=== PATIENT | female | born 1960 | race Caucasian/White ===

== ENCOUNTER 2024-11-18 16:10 | Emergency (ER) | payer MEDICARE, MEDICAID, SELFPAY ==
[2024-11-18 16:13] VITALS: BMI 36.3
[2024-11-18 16:57] VITALS: BP 144/82; PULSE 91; RESP 18; TEMP 36.8; O2SAT 97
--- NOTE | 2024-11-18 17:21 | PD.EDEXREM ---
ED Extremity Problem RME/HPI General Chief complaint: Extremity Problem,Nontraumatic Stated complaint: Right leg pain 04/20, swelling x 3 days Time Seen by Provider: 11/18/24 16:34 Arrival date/time: 11/18/24 16:10 64-year-old female with a history of lower back pain chronic and sciatica reports with complaints for pain right lower extremity. Patient states the pain shoots from her buttock down the thigh and down to the lower leg into her foot. Patient also reports some numbness and tingling in the foot she denies any injuries or trauma and states that she has been taking [place] which she is prescribed for pain with no relief of symptoms. Patient also denies any changes in bowel or bladder habits Limitations: no limitations Related Data Previous Rx's ?Medication ?Instructions ?Recorded meloxicam 7.5 mg tablet 7.5 mg PO QDAY #30 tabs 11/18/24 Allergies Allergy/AdvReac Type Severity Reaction Status Date / Time calcium Allergy Verified 11/18/24 16:13 iodine Allergy Verified 11/18/24 16:13 Penicillins Allergy Verified 11/18/24 16:13 povidone-iodine (From Allergy Verified 11/18/24 16:13 Betadine) Sulfa (Sulfonamide Allergy Verified 11/18/24 16:13 Antibiotics) Past Medical History Social History SMOKING STATUS: Current some day smoker ED Exam General Limitations: Present no limitations General appearance: Present alert and in no apparent distress Expanded Lower Extremity Exam Hip/Pelvis exam: Present normal inspection and full ROM Upper leg exam: Present normal inspection and full ROM; Absent tenderness, swelling or erythema Knee exam: Present normal inspection and full ROM; Absent tenderness, swelling or erythema Lower leg exam: Present normal inspection and full ROM; Absent tenderness, swelling or erythema Ankle exam: Present normal inspection and full ROM; Absent tenderness, swelling or erythema Foot/toe exam: Present normal inspection and full ROM; Absent tenderness or swelling Neurovascular/Tendon exam: Present normal capillary refill Gait: other (Patient ambulates with walker) Back Exam Back exam: Present normal inspection, tenderness (L4-L5 extending along right sciatic nerve to right mid buttock) and straight leg raise (R); Absent full ROM, paraspinal tenderness, vertebral tenderness or straight leg raise (L) Neurological Exam Neurological exam: Present alert, oriented X3 and CN II-XII intact Psychiatric Psychiatric exam: Present normal affect and normal mood Skin Skin exam: Present warm, dry, intact and normal color Course Quality Measures none Orders Category Date Time Status Ketorolac Inj [Toradol Inj] Med 11/18/24 17:22 Once 30 mg IM X1 ONE Vital Signs Vital signs: Vital Signs Temperature 98.3 F 11/18/24 16:57 Pulse Rate 91 11/18/24 16:57 Respiratory Rate 18 11/18/24 16:57 Blood Pressure 144/82 H 11/18/24 16:57 Pulse Oximetry (%) 97 11/18/24 16:57 Oxygen Delivery Method Room Air 11/18/24 16:57 Extremity Problem Patient data External records reviewed:: None Clinical information provided by:: patient Social determinants that could affect healthcare access:: none Patient has the following chronic illnesses:: Sciatica How is presenting disease/condition affected by chronic disease/condition?: caused by Evaluation data The following diagnostics were reviewed and interpreted by me:: other (specify) Lab and/or radiology exams considered but not ordered:: None Interpretation Summary: N/A Medications / Prescriptions Medications or Prescriptions considered but not ordered:: None Medication administrations:: Medication Administration History Ketorolac Tromethamine (Ketorolac Inj 60 Mg/2 Ml Vial) 30 mg IM X1 ONE Stop: 11/18/24 17:23 As above Consultations Consultation(s) initiated? (list below): No Diagnosis Most likely diagnosis given after review of the tests above:: Sciatica Admission Indicated Admission indicated?: not indicated Admission Request Was there a request for admission?: No Disposition Plan Disposition Plan: Discharge Discharge Attestation Discharge Attestation: The patient and all family members were given an opportunity to ask questions and understood the discharge instructions. Discharge instructions specifically effects, indications for sooner follow up or return to the emergency department, and the expected course of current diagnosis. Patient condition: Stable Discharge Plan Plan Patient Disposition: HOME (Self Care) Prescriptions/Referrals Prescriptions/Med Rec: New meloxicam 7.5 mg tablet 7.5 mg PO QDAY Qty: 30 0RF Problem List Clinical Impression: Sciatica Patient/Caregiver Discharge Instructions Discharge Activity: activity as tolerated Education Materials: ED Sciatica Additional Instructions: Take medication as directed hydrate well follow-up with your primary care provider if no improvement in 3 days Print Language: Ukrainian Stand Alone Forms: Fay Award Info., Patient Portal Info Letter
[2024-11-18] MEDS: KETOROLAC INJ 60 MG/2 ML VIAL 30 MG IM (17:39)
== END 2024-11-18 17:46 | disposition home or self-care (01) ==
LOC: SERX 17:57
PROVIDERS: Emergency Provider Emergency Medicine; PCP Nurse Practitioner Family
DX: M54.40 Lumbago with sciatica, unspecified side (principal); F17.210 Nicotine dependence, cigarettes, uncomplicated
CPT/HCPCS: 96372; 99283; J1885

== ENCOUNTER 2024-12-20 13:25 | Emergency (ER) | payer MEDICARE, MEDICAID, SELFPAY ==
[2024-12-20 13:35] VITALS: BP 162/94; PULSE 84; RESP 18; TEMP 36.4; O2SAT 95; BMI 35.0
--- NOTE | 2024-12-20 13:51 | XR_ITS ---
Examination: Abdomen AP single view Technique: AP portable supine abdomen, single view Exam date and time: 12/20/2024, 1:59 PM INDICATION: Abdominal pain. Diffuse fecal material in the colon. No small bowel enlargement or dilatation seen. Diffuse fecal material in the colon. No evidence of free air. Postoperative clips in the gallbladder fossa. No abnormal radiopaque calcifications or densities. IMPRESSION: Nondilated small bowel. Diffuse fecal material in the colon. No free air
--- NOTE | 2024-12-20 13:51 | XR_ITS ---
Exam: Chest 1 view, AP Date and time of exam: 12/20/2024, 1:59 PM INDICATION: Chest pain Comparison: None Findings: Normal heart size. No mediastinal adenopathy. No acute fracture No pulmonary edema or pneumonia. Scattered left basilar atelectasis. Impression: No active disease.
--- NOTE | 2024-12-20 13:51 | XR_ITS ---
Examination: Venous duplex lower extremity sonogram, bilateral. Date and time of exam: 12/20/2024, 2:19 PM INDICATION: Bilateral leg pain Technique: Multiple sonographic images of the deep venous system have been obtained. B-mode/2-D grayscale imaging of vascular structures and Doppler spectral analysis (waveforms) and color performed Both legs are examined. Findings: Deep venous systems do not demonstrate abnormal echogenicity. All visualized deep veins exhibit compressibility. All visualized deep veins exhibit augmentation. Impression: Negative for deep vein thrombosis
--- NOTE | 2024-12-20 13:53 | PD.EDRME ---
Rapid Medical Screening Exam RME Arrival date/time: 12/20/24 13:25 64-year-old female presents to the emergency department for complaints of bilateral leg pain. Patient then also mention she has difficulty swallowing ongoing x 3 days Time Seen by Provider: 12/20/24 13:47 Vital signs: Vital Signs Temperature 97.6 F 12/20/24 13:35 Pulse Rate 84 12/20/24 13:35 Respiratory Rate 18 12/20/24 13:35 Blood Pressure 162/94 H 12/20/24 13:35 Pulse Oximetry (%) 95 12/20/24 13:35 Oxygen Delivery Method Room Air 12/20/24 13:35
[2024-12-20 14:52] LABS: Collection Type, Urine Clean Catch
[2024-12-20 15:00] LABS: Bilirubin,Urine Negative (Negative); Blood,Urine 1+ (Negative); Clarity,Urine Clear (Clear/Hazy); Color,Urine Colorless (Lt Yel-Yel); Culture Indicated,Urine Not Indicated; Glucose, Urine Negative (Negative); Ketones,Urine Negative (Negative); Leukocyte Esterase,Urine Negative (Negative); Nitrite,Urine Negative (Negative); Protein,Urine Negative (Neg - Trace); RBC,Urine 1 /hpf (0-3); Specific Gravity,Urine 1.012 (1.001-1.035); Squamous Epithelial Cell,Urine 1 /hpf (0-5); Urobilinogen,Urine Negative mg/dL (0.0-1.0); WBC,Urine < 1 /hpf (0-5)
[2024-12-20 15:19] LABS: Basophils # (Auto) 0.1 Thou/mm3 (0.0-0.2); Basophils % (Auto) 0 % (0-2.5); Eosinophils # (Auto) 0.4 Thou/mm3 (0.0-0.5); Eosinophils % (Auto) 3 % (0-10); Hematocrit 38.4 % (36.0-46.0); Immature Granulocytes % (Auto) 0 % (0-0); Immature Granulocytes Auto 0.05 Thou/mm3 (0.00-0.00); Lymphocytes # (Auto) 6.1 Thou/mm3 (1.0-4.8); Lymphocytes % (Auto) 46 % (10-50); Mean Corpuscular HGB Conc 33.9 g/dl (31.0-37.0); Mean Corpuscular Volume 86 fL (80-100); Monocytes % (Auto) 7 % (0-12); Neutrophils # (Auto) 5.9 Thou/mm3 (1.8-7.7); Neutrophils % (Auto) 44 % (37-80); Nucleated Red Blood Cell % 0 /100 WBC (0); Platelet Count 232 Thou/mm3 (140-440); RDW Standard Deviation 45.2 fL (36.4-46.3); Red Blood Count 4.48 Miln/mm3 (4.00-5.20); White Blood Count 13.4 Thou/mm3 (3.6-11.0)
[2024-12-20 15:47] LABS: Alanine Aminotransferase 17 U/L (10-49); Albumin, Serum 4.2 gm/dL (3.4-4.8); Albumin/Globulin Ratio 1.7 (1.2-2.2); Alkaline Phosphatase 61 U/L (46-116); Anion Gap 6 (7-16); Aspartate Amino Transferase 15 U/L (0-34); BUN/Creatinine Ratio 25 Ratio (12-20); Bilirubin,Total 0.4 mg/dL (0.3-1.2); Blood Urea Nitrogen 20 mg/dL (9-23); Carbon Dioxide 26.6 mMol/L (20.0-31.0); Chloride 110 mMol/L (98-107); Creatinine (Component) 0.8 mg/dL (0.6-1.3); Estimated Creatinine Clearance 57.4 mL/min (>60); Globulin 2.5 gm/dL (2.3-3.5); Glucose 87 mg/dL (74-106); Lipase 32 U/L (12-53); Magnesium 1.4 mg/dL (1.6-2.6); Osmolality,Calculated 286 (275-295); Sodium 143 mMol/L (136-145); Total Protein 6.7 gm/dL (5.7-8.2); eGFR > 60 See Note
[2024-12-20 15:52] LABS: Path Review Blood Smear Sent to Pathologist
[2024-12-20 16:07] VITALS: BP 158/90; PULSE 91; RESP 20; TEMP 37; O2SAT 95
--- NOTE | 2024-12-20 17:01 | EDNOTE_ITS ---
ED General RME/HPI General Stated complaint: LEG PAIN Time Seen by Provider: 12/20/24 13:47 Arrival date/time: 12/20/24 13:25 RME / HPI RME / HPI narrative: 64-year-old female presents to the emergency department for complaints of bilateral leg pain. Described as dull ache, severity moderate. This been ongoing for several days. Patient then also mention she has difficulty swallowing ongoing x 3 days. Patient denies any cough denies any chest pain denies any back pain denies any other complaints no medication was taken prior travel. Patient denies any bladder incontinence, bowel incontinence, and saddle anesthesia. Patient was seen by PCP for the same complaints and was given pain shot with mild relief only. Currently taking [place] and gabapentin. Related Data Previous Rx's ?Medication ?Instructions ?Recorded meloxicam 7.5 mg tablet 7.5 mg PO QDAY #30 tabs 11/09 Allergies Allergy/AdvReac Type Severity Reaction Status Date / Time calcium Allergy Verified 11/18/24 16:13 iodine Allergy Verified 11/18/24 16:13 Penicillins Allergy Verified 11/18/24 16:13 povidone-iodine (From Allergy Verified 11/18/24 16:13 Betadine) Sulfa (Sulfonamide Allergy Verified 11/18/24 16:13 Antibiotics) Review of Systems Review of Systems Narrative Review of Systems: Review of system reviewed and within normal limits except mentioned in HPI ED Exam Narrative Physical exam: VITAL SIGNS: Reviewed. GENERAL APPEARANCE: Alert and interactive, follows commands, no acute distress, HEAD AND FACE: Non-traumatic. ENT: PERRL, pink conjunctivitis, eyelid no trauma, Mucous membrane moist. NECK: Supple, nontender, no nuchal rigidity. CHEST: No tenderness, no crepitus, no paradoxical movement, no retractions. LUNGS: Clear, well ventilated, symmetric, no rales, no wheezing, no ronchi, no stridor, good breath sounds bilaterally. HEART: Regular rate, regular rhythm, no murmur, no gallops. ABDOMEN: Soft, positive bowel sounds, nondistended, no guarding, nontender, no rebound, no masses, RECTAL: Deferred. GENITAL: Deferred. NEUROLOGICAL: Gross motor function intact sensory function intact, Appropriate for age. MUSCULOSKELETAL: low back nontender, full range of motion. EXTREMITIES: Bilateral lower leg and foot pain, no cyanosis, warm to touch, distal neurovascular status intact bilateral, full range of motion. SKIN: Color pink, dry, no rash, no lacerations, no abrasions, no contusions. LYMPHATICS: Deferred. Course Quality Measures none Orders Category Date Time Status US venous doppler LE BI Stat Exams 12/20/24 13:51 Completed XR abdomen 1V Stat Exams 12/20/24 13:51 Completed XR chest 1V portable Stat Exams 12/20/24 13:51 Completed CBC Stat Lab 12/20/24 15:06 Completed Comprehensive Metabolic Panel Stat Lab 12/20/24 15:06 Completed Lipase Stat Lab 12/20/24 15:06 Completed Mag [Magnesium] Stat Lab 12/20/24 15:06 Completed Path Review Blood Smear Routine Lab 12/20/24 11:50 Completed UA, C/S IF [Urinalysis, C/S if Indicated] Stat Lab 12/20/24 13:45 Completed Ketorolac Inj [Toradol Inj] Med 12/20/24 16:59 Discontinued 30 mg IM X1 ONE Vital Signs Vital signs: Vital Signs Temperature 97.6 F 12/20/24 13:35 Pulse Rate 84 12/20/24 13:35 Respiratory Rate 18 12/20/24 13:35 Blood Pressure 162/94 H 12/20/24 13:35 Pulse Oximetry (%) 95 12/20/24 13:35 Oxygen Delivery Method Room Air 12/20/24 13:35 [facility] Patient data External records reviewed:: None Clinical information provided by:: patient Social determinants that could affect healthcare access:: none Patient has the following chronic illnesses:: Diabetes mellitus hypertension with How is presenting disease/condition affected by chronic disease/condition?: e xacerbated by Evaluation data The following diagnostics were reviewed and interpreted by me:: lab results and radiology exam(s) Lab and/or radiology exams considered but not ordered:: None Interpretation Summary: See results [facility] Medications Medications considered but not ordered:: None Medication administrations:: Medication Administration History Discontinued Medications Ketorolac Tromethamine (Ketorolac Inj 60 Mg/2 Ml Vial) 30 mg IM X1 ONE Stop: 12/20/24 17:00 toradol Consultations Consultation(s) initiated? (list below): No Diagnosis Differential Diagnosis ED Complaint MDM: Leg pain DVT diabetic leg neuropathy Most likely diagnosis given after review of the tests above:: Diabetic leg neuropathy Admission Indicated Admission indicated?: not indicated Explain why admission is indicated or not indicated:: Stable Admission Request Was there a request for admission?: No Disposition Plan Disposition Plan: Discharge Discharge Attestation Discharge Attestation: The patient was given an opportunity to ask questions and understood the discharge instructions. Discharge instructions specifically effects, indications for sooner follow up or return to the emergency department, and the expected course of current diagnosis. Patient condition: Stable Medical Decision Making MDM Narrative MDM Narrative: 64-year-old female presents to the emergency department for complaints of bilateral leg pain. Described as dull ache, severity moderate. This been ongoing for several days. Patient then also mention she has difficulty swallowing ongoing x 3 days. Patient denies any cough denies any chest pain denies any back pain denies any other complaints no medication was taken prior travel. Patient denies any bladder incontinence, bowel incontinence, and saddle anesthesia. Patient was seen by PCP for the same complaints and was given pain shot with mild relief only. Currently taking [place] and gabapentin. Patient workup today all came back unremarkable except for slight leukocytosis of 13.4 CMP unremarkable except for magnesium 1.4. Urinalysis no UTI. Ultrasound of the leg negative for DVT. I personally reviewed and interpreted the x-ray of this patient. There is no acute abnormalities found, no infiltrates no pneumothorax no hemothorax normal chest x-ray. Review of other structures was without significant abnormal findings also. I additionally reviewed the radiologist report and agree with the interpretation. X-ray of the abdomen came back unremarkable. Patient's symptoms could be secondary to diabetic neuropathy of both legs. Patient was given Toradol IM. Was advised to see her PCP for further management. Patient agrees with plan Differential Diagnosis Differential Diagnosis: Leg pain DVT diabetic leg neuropathy Lab Data 12/20/24 15:06 12/20/24 15:06 Labs: Lab Results 12/20/24 12/20/24 12/20/24 Range/Units 11:50 13:45 15:06 WBC 13.4 H (3.6-11.0) Thou/mm3 RBC 4.48 (4.00-5.20) Miln/mm3 Hgb 13.0 (12.0-16.0) g/dL Hct 38.4 (36.0-46.0) % MCV 86 (80-100) fL MCH 29.0 (25.0-35.0) pg MCHC 33.9 (31.0-37.0) g/dl RDW Std Deviation 45.2 (36.4-46.3) fL Plt Count 232 (140-440) Thou/mm3 Neut % (Auto) 44 (37-80) % Lymph % (Auto) 46 (10-50) % [place] % (Auto) 7 (0-12) % Eos % (Auto) 3 (0-10) % Baso % (Auto) 0 (0-2.5) % Neut # (Auto) 5.9 (1.8-7.7) Thou/mm3 Lymph # (Auto) 6.1 H (1.0-4.8) Thou/mm3 [place] # (Auto) 1.0 H (0.0-0.8) Thou/mm3 Eos # (Auto) 0.4 (0.0-0.5) Thou/mm3 Baso # (Auto) 0.1 (0.0-0.2) Thou/mm3 Immature Gran # (Auto) 0.05 H (0.00-0.00) Thou/mm3 Absolute Nucleated RBC 0.00 (0.00-0.00) Thou/mm3 Immature Gran % 0 (0-0) % Nucleated RBC % 0 (0) /100 WBC Smear Path Review Sent to Pathologist Sodium 143 (136-145) mMol/L Potassium 4.0 (3.4-5.1) mMol/L Chloride 110 H (98-107) mMol/L Carbon Dioxide 26.6 (20.0-31.0) mMol/L Anion Gap 6 L (7-16) BUN 20 (9-23) mg/dL Creatinine 0.8 (0.6-1.3) mg/dL Estim Creat Clear Calc 57.4 L (>60) mL/min eGFR > 60 (60 - ) See Note BUN/Creatinine Ratio 25 H (12-20) Ratio Glucose 87 (74-106) mg/dL Calculated Osmolality 286 (275-295) Calcium 9.0 (8.3-10.6) mg/dL Corrected Calcium 9.0 (8.5-10.1) mg/dL Magnesium 1.4 L (1.6-2.6) mg/dL Total Bilirubin 0.4 (0.3-1.2) mg/dL AST 15 (0-34) U/L ALT 17 (10-49) U/L Alkaline Phosphatase 61 (46-116) U/L Total Protein 6.7 (5.7-8.2) gm/dL Albumin 4.2 (3.4-4.8) gm/dL Globulin 2.5 (2.3-3.5) gm/dL Albumin/Globulin Ratio 1.7 (1.2-2.2) Lipase 32 (12-53) U/L Ur Collection Type Clean Catch Urine Color Colorless A (Lt Yel-Yel) Urine Clarity Clear (Clear/Hazy) Urine pH 6.0 (5.0-7.0) Ur Specific [place] 1.012 (1.001-1.035) Urine Protein Negative (Neg - Trace) Urine Glucose (UA) Negative (Negative) Urine Ketones Negative (Negative) Urine Blood 1+ A (Negative) Urine Nitrite Negative (Negative) Urine Bilirubin Negative (Negative) Urine Urobilinogen (Auto) Negative (0.0-1.0) mg/dL Ur Leukocyte Esterase Negative (Negative) Urine RBC 1 (0-3) /hpf Urine WBC < 1 (0-5) /hpf Ur Squamous Epith Cells 1 (0-5) /hpf Urine Bacteria None (None) Ur Culture Indicated? Not Indicated Discharge Plan Plan Patient Disposition: HOME (Self Care) Disposition Comment: Stable Prescriptions/Referrals Prescriptions/Med Rec: No Action meloxicam 7.5 mg tablet 7.5 mg PO QDAY Qty: 30 0RF Referrals: Gricelda Walker [Primary Care Provider] - In 1 week Problem List Clinical Impression: Neuropathic pain of both legs Patient/Caregiver Discharge Instructions Education Materials: Diabetic Neuropathy Additional Instructions: Thank you for the opportunity for serving you today. You are stable for discharged . You are advised to: Follow-up with your PCP in 1 to 2 days Return to ED for worsening of symptoms Continue taking your pain medication Print Language: Peruvian Stand Alone Forms: Fay Award Info., Patient Portal Info Letter SARIAH/ASAEL Supervising Physician SARIAH/ASAEL Supervising Physician: MD Beatriz
[2024-12-20] MEDS: KETOROLAC INJ 60 MG/2 ML VIAL 30 MG IM (17:32)
== END 2024-12-20 18:40 | disposition home or self-care (01) ==
PROVIDERS: Nurse Practitioner Primary Care; Emergency Provider Emergency Medicine; PCP Internal Medicine
DX: G57.93 Unspecified mononeuropathy of bilateral lower limbs (principal)
CPT/HCPCS: 36415; 71045; 74018; 80053; 81001; 83690; 83735; 85025; 93970; 96372; 99284; J1885